=== PATIENT | male | born 1995 | race Caucasian/White ===

== ENCOUNTER 2017-05-21 22:37 | Emergency (ER) | payer OTHER ==
[~2017-05-21] VITALS: Ht 172.7 cm; Wt 71.0 kg
[2017-05-21] MEDS ORDERED: IBUPROFEN 600 MG TABLET PO ONE (23:45)
[2017-05-21] MEDS ORDERED: BUPIVACAINE HCL/PF 0.25% 10 ML VIAL INJ ONE (23:45)
[2017-05-21] MEDS ORDERED: ACETAMINOPHEN/CODEINE 300-30 MG TABLET PO ONE (23:45)
[2017-05-22 01:22] VITALS: BP 127/84
== END 2017-05-22 01:36 | disposition home or self-care (01) ==
LOC: EMS 22:40
DX: S01.511A Laceration without foreign body of lip, initial encounter (principal); S00.83XA Contusion of other part of head, initial encounter; S00.03XA Contusion of scalp, initial encounter; W50.0XXA Accidental hit or strike by another person, initial encounter; S10.93XA Contusion of unspecified part of neck, initial encounter; Y93.89 Activity, other specified; Y92.89 Other specified places as the place of occurrence of the external cause; Y99.9 Unspecified external cause status
CPT/HCPCS: 12011; 70450; 70486; 99283; J3490

== ENCOUNTER 2017-06-01 23:04 | Emergency (ER) | payer OTHER ==
[~2017-06-01] VITALS: Ht 172.7 cm; Wt 70.5 kg
[2017-06-01] MEDS ORDERED: PERCT PO (23:11)
[2017-06-01] MEDS ORDERED: IBUP-1547 PO (23:11)
[2017-06-01] MEDS ORDERED: PENI500T2 PO (23:11)
[2017-06-01 23:44] VITALS: BP 132/77
[2017-06-01] MEDS ORDERED: DiphenhydrAMINE HCL 25 MG CAPSULE PO ONE (23:45)
[2017-06-01] MEDS ORDERED: PredniSONE 10 MG TABLET PO ONE (23:45)
[2017-06-02] MEDS ORDERED: KETOROLAC TROMETHAMINE 60 MG/2 ML VIAL IM ONE (00:15)
== END 2017-06-02 00:35 | disposition home or self-care (01) ==
LOC: EMS 23:06
DX: F07.81 Postconcussional syndrome (principal); R42 Dizziness and giddiness
CPT/HCPCS: 96372; 99283; J1885